=== PATIENT | female | born 1970 | race American Indian/Alaskan Native ===

== ENCOUNTER 2017-10-12 11:14 | Observation (INO) | payer OTHER ==
[2017-10-11 11:23] LABS: Basophils % (Auto) 1.1 % (0.0-1.8); Eosinophils # (Auto) 0.1 K/mm3 (0.0-0.4); Eosinophils % (Auto) 1.7 % (0.0-4.3); Hematocrit 39.7 % (30.3-42.9); Hemoglobin 13.4 gm/dl (10.1-14.3); Lymphocytes # (Auto) 1.7 K/mm3 (1.2-5.4); Lymphocytes % (Auto) 39.9 % (13.4-35.0); Mean Corpuscular HGB Conc 34 % (30-34); Mean Corpuscular Hemoglobin 30 pg (28-32); Mean Corpuscular Volume 89 fl (79-97); Monocytes # (Auto) 0.3 K/mm3 (0.0-0.8); Monocytes % (Auto) 7.4 % (0.0-7.3); Platelet Count 210 K/mm3 (140-440); Red Blood Count 4.44 M/mm3 (3.65-5.03); Red Cell Distribution Width 14.5 % (13.2-15.2)
[2017-10-11 11:45] LABS: BUN/Creatinine Ratio 13; Blood Urea Nitrogen 8 mg/dL (7-17); Calcium 9.2 mg/dL (8.4-10.2)
[2017-10-11 11:46] LABS: Hemolysis Index 8
--- NOTE | 2017-10-12 08:56 | History and Physical Report ---
History of Present Illness Date of examination: 10/12/17 Date of admission: 10/12/2017 Chief complaint: Heavy menses and pelvic pain History of present illness: 47-year-old 030 with a history of symptomatic uterine fibroids. The patient reports significant menorrhagia and dysmenorrhea during her menses. She subsequently become anemic secondary to her heavy menses. The patient underwent an ultrasound that demonstrated findings of an enlarged uterus of 14.5 cm. The ultrasound indicated there were approximately 3 leiomyomas with the largest being 4.6 cm. Patient has elected to undergo definitive surgical management. Past History Past Medical History: other (leiomyoma; Anemia) Past Surgical History: other (reduction mammoplasty; abdominoplasty) Social history: - Obstetrical History : 5 Para: 2 Hx # Term Pregnancies: 2 Number of Pregnancies: 0 Spontaneous Abortions: 1 Induced : 2 Number of Living Children: 2 Medications and Allergies Allergies Allergy/AdvReac Type Severity Reaction Status Date / Time erythromycin base Allergy Severe Verified 10/10/17 15:48 vomiting Home Medications Medication Instructions Recorded Confirmed Last Taken Type Acetaminophen [Tylenol] 650 mg PO Q6HR PRN 10/10/17 10/10/17 Unknown History Review of Systems Constitutional: fatigue Genitourinary: vaginal bleeding, pelvic pain - Vital Signs Vital signs: Vital Signs Temp Pulse Resp BP 98.3 F 64 16 110/78 10/11/17 10:45 10/11/17 10:45 10/11/17 10:45 10/11/17 10:45 Temp Pulse Resp BP Pulse Ox 98.3 F 64 16 110/78 10/11/17 10:45 10/11/17 10:45 10/11/17 10:45 10/11/17 10:45 - Physical Exam Breasts: Positive: deferred Cardiovascular: Regular rate Lungs: Positive: Clear to auscultation Abdomen: Positive: normal appearance Results Result Diagrams: 10/11/17 10:50 10/11/17 10:50 Abnormal lab results 10/11/17 10/11/17 Range/Units 10:50 10:50 WBC 4.3 L (4.5-11.0) K/mm3 Lymph % (Auto) 39.9 H (13.4-35.0) % [place] % (Auto) 7.4 H (0.0-7.3) % Creatinine 0.6 L (0.7-1.2) mg/dL Glucose 128 H (65-100) mg/dL All other labs normal. Assessment and Plan - Patient Problems (1) Leiomyoma Status: Acute Plan to address problem: Patient is scheduled for robotic hysterectomy and bilateral salpingectomy (2) Menorrhagia Status: Acute (3) Dysmenorrhea Status: Acute
[~2017-10-12 11:14] MED LIST: ANCEF/STERILE WATER 2 GM/20 ML 2 GM/20 ML SYRINGE IV SCH
[2017-10-12] MEDS ORDERED: ZOFRAN ONE (12:04)
[2017-10-12] MEDS ORDERED: QUELICIN ONE (12:04)
[2017-10-12] MEDS ORDERED: SUBLIMAZE ONE ×2 (12:05→12:39)
[2017-10-12] MEDS ORDERED: REGLAN ONE (12:05)
[2017-10-12] MEDS ORDERED: XYLOCAINE MPF 2% ONE (12:05)
[2017-10-12] MEDS ORDERED: DIPRIVAN 10 MG/ML IV ONE (12:05)
[2017-10-12] MEDS ORDERED: ZEMURON IV ONE (12:06)
[2017-10-12] MEDS ORDERED: NACL 0.9% 1000 ML 1,000 ML IV SCH ×2 (12:30→17:00)
[2017-10-12] MEDS ORDERED: NACL 0.9% 1000 ML 1,000 ML ONE (12:30)
[2017-10-12] MEDS ORDERED: GELFOAM POWDER 1GM MM ONE ×2 (12:35→15:00)
[2017-10-12] MEDS ORDERED: NEOSPORIN GU IR ONE ×2 (12:36→15:00)
[2017-10-12] MEDS ORDERED: THROMBIN (BOVINE) TP ONE ×2 (12:36→15:00)
[2017-10-12] MEDS ORDERED: MARCAINE-EPI 0.5%-1:200,000 INFILTRATI ONE (12:38)
[2017-10-12] MEDS ORDERED: DECADRON ONE (12:38)
[2017-10-12] MEDS ORDERED: NEURONTIN ONE (12:39)
[2017-10-12] MEDS ORDERED: VERSED ONE (12:40)
[2017-10-12] MEDS ORDERED: ANCEF/STERILE WATER 2 GM/20 ML IV NR (13:00)
[2017-10-12] MEDS ORDERED: LACTATED RINGERS 1,000 ML ONE ×2 (13:27→15:39)
[2017-10-12] MEDS ORDERED: ePHEDrine 50 MG/5 ML-0.9% NACL IV ONE (13:29)
[2017-10-12] MEDS ORDERED: DILAUDID ONE (14:56)
[2017-10-12] MEDS ORDERED: NACL 0.9% IR ONE ×2 (15:00)
[2017-10-12] MEDS ORDERED: ROBINUL ONE (15:21)
[2017-10-12] MEDS ORDERED: BLOXIVERZ ONE (15:21)
[2017-10-12] MEDS ORDERED: NARCAN 0.4 MG/1 ML IV PRN (15:34)
--- NOTE | 2017-10-12 15:34 | Operative Report ---
Operative Report Operative Report: Date of surgery: 10/12/2017 Preoperative diagnoses: Symptomatic uterine fibroids; menorrhagia; dysmenorrhea Postoperative diagnoses: Same as above Procedure: Robotic hysterectomy; bilateral salpingectomy Surgeon: Dora Quintana M.D. Compounding Technician: Mitzi Butler Anesthesia: Gen. endotracheal anesthesia Estimated blood loss: 150 mL Pathology: Multiple leiomyomas, cervix and uterus, bilateral tubes Indication: 47-year-old 030 with a history of symptomatic uterine fibroids. The patient reports a history of significant vaginal bleeding and dysmenorrhea. She elected to undergo definitive surgical management. Procedure: The patient was taken to the operating room and given general endotracheal anesthesia without complication. She is prepped and draped in a normal sterile fashion. A bivalve speculum was placed in the patient's vagina and a single- tooth tenaculum placed on the anterior lip of the cervix. The uterus was sounded with the uterine sound. A OrdrIt uterine manipulator was placed in the bivalve speculum was then removed. Attention was then turned to the patient's abdomen where a millimeter supra umbilical skin incision was then made. A Veress needle was placed and peritoneal entry was verified water-filled syringe. Insufflation of the peritoneal cavity was performed with CO2 gas. The 12 mm trocar was then placed under direct visualization. An additional 8 mm trocar was placed on the patient's left and right lateral side just opposite of the supraumbilical trocar. An additional 5 mm right lateral trocar was then placed as the accessory port. The patient was then placed in steep Trendelenburg. The da Porfirio robot was then engaged. A fenestrated forcep was placed in arm 2 and a vessel sealer was placed in arm 1. The surgeon then transferred to the surgical console. General survey of the abdomen and pelvis revealed a significantly enlarged fibroid uterus. The uterus was noted to be approximately 16 weeks size with multiple leiomyomas. The ovaries and tubes were normal bilaterally. The mesosalpinx was then isolated on the right. The vessel sealer was used to coagulate the mesosalpinx which was then transected. The tube was transected from the ovary. The tubo-ovarian ligament was then coagulated and transected. The round ligament was then coagulated and transected also. The vesicouterine peritoneum was then entered from the patient 's right side. The uterine vessels were then coagulated with the vessel sealer. The vessels were then transected . Attention was then turned to the patient's left side where the tubo-ovarian ligament and mesosalpinx were again isolated coagulated and transected. The vesical peritoneum was then entered from the left and joined in the midline. Peritoneum was reflected off of the lower uterine segment. Uterine vessels were then coagulated and then transected. The blood supply to the uterus was adequately contained. A myomectomy had to be performed in order to decompress the uterus. An incision was made over the uterine serosa with the monopolar scissors. The leiomyoma was then grasped with the single-toothed tenaculum and it was excised with the monopolar scissors. 7 leiomyomas had to be removed. The uterus also had to be bivalved for passage through the vagina. A posterior colpotomy was made. The V care ring was visualized. Posterior colpotomy was created with the monopolar scissors. The incision was continued circumferentially until anterior colpotomy was made. The cervix and uterus were amputated from the vaginal cuff. The uterus was then removed along with the leiomyomas and tubes bilaterally through the vagina and a warm laparotomy sponge was placed and maintain the pneumoperitoneum. The vaginal cuff was then closed in a running fashion with V lock suture. Irrigation of the pelvis was performed. Tisseel was applied to the incision. The supraumbilical 12 mm trocar site was closed with the Artie Emerson device. The skin was then reapproximated with 4-0 Monocryl. The tissue was sent to pathology which included the cervix and uterus. The patient was then successfully extubated. She was then taken to the recovery room in stable condition. All sponge laps and needle counts were correct x2.
[2017-10-12] MEDS ORDERED: PERCOCET 5/325 PO PRN (15:35)
[2017-10-12] MEDS ORDERED: MOTRIN PO PRN (15:35)
[2017-10-12] MEDS ORDERED: TYLENOL PO PRN (15:35)
[2017-10-12] MEDS ORDERED: MILK OF MAGNESIA PO PRN (15:35)
[2017-10-12] MEDS ORDERED: AMBIEN PO PRN (15:35)
[2017-10-12] MEDS ORDERED: MORPHINE PCA 30MG/30ML IV SCH (16:00)
[2017-10-12] MEDS ORDERED: D5LR 1,000 ML IV SCH (16:00)
[2017-10-12] MEDS ORDERED: DEMEROL IV PRN (16:08)
[2017-10-12] MEDS ORDERED: TORADOL IV PRN (16:08)
[2017-10-12] MEDS ORDERED: ZOFRAN IV PRN (16:08)
--- NOTE | 2017-10-12 16:08 | Anesthesia Day of Surgery ---
Anesthesia Day of Surgery - Day of Surgery Patient Examined: Yes Patient H&P Reviewed: Yes Patient is NPO: Yes
--- NOTE | 2017-10-12 16:08 | Anesthesia Consultation ---
Anesthesia Consult and Med Hx Date of service: 10/12/17 - Airway Anesthetic Teeth Evaluation: Good ROM Head & Neck: Adequate Mental/Hyoid Distance: Adequate Mallampati Class: Class II Intubation Access Assessment: Probably Good - Pulmonary Exam CTA: Yes - Cardiac Exam Cardiac Exam: RRR - Pre-Operative Health Status ASA Pre-Surgery Classification: ASA2 Proposed Anesthetic Plan: General - Pulmonary Hx Asthma: Yes (Has not been treated in over a year) - Central Nervous System Hx Psychiatric Problems: No - Other Systems Hx Alcohol Use: Yes (occas) Hx Cancer: No
--- NOTE | 2017-10-12 16:12 | Post Anesthesia Evaluation ---
- Post Anesthesia Evaluation Patient Participated: Yes Airway Patent: Yes Stable Respiratory Function: Yes Nausea/Vomiting: No Temp > 96.8F: Yes Pain Manageable: Yes Adequeate Hydration: Yes Anesthesia Complications: No
[2017-10-12] MEDS: DILAUDID IV PRN ×2 (16:33→16:45)
[2017-10-12] MEDS ORDERED: LACTATED RINGERS 1,000 ML IV SCH (17:00)
[2017-10-12] MEDS: TORADOL IV SCH (22:26)
[2017-10-13] MEDS: ZOFRAN IV PRN ×2 (00:29→13:00)
[2017-10-13] MEDS: TORADOL IV SCH ×2 (04:19→10:50)
[2017-10-13 04:20] LABS: Hematocrit 35.7 % (30.3-42.9)
--- NOTE | 2017-10-13 10:34 | Progress Note ---
Assessment and Plan - Patient Problems (1) Leiomyoma Current Visit: No Status: Acute Plan to address problem: patient doing well discharge home today once patient voids (2) Menorrhagia Current Visit: No Status: Acute (3) Dysmenorrhea Current Visit: No Status: Acute Subjective - Subjective Date of service: 10/13/17 Interval history: Surgical findings discussed with patient. She has had a shrestha removed but has not voided yet. Tolerating regular diet. Patient reports: appetite normal, pain well controlled Objective - Vital Signs Latest vital signs: Vital Signs Temp Pulse Resp BP BP Pulse Ox 10/13/17 05:53 20 10/13/17 04:30 98.7 F 74 18 118/68 10/13/17 04:19 18 10/13/17 01:00 98.7 F 71 16 104/44 10/13/17 00:12 16 10/12/17 22:29 18 10/12/17 22:26 18 10/12/17 20:05 18 10/12/17 19:00 98.7 F 74 18 119/58 10/12/17 18:00 97.4 F L 69 20 105/54 96 10/12/17 17:45 64 14 108/58 100 10/12/17 17:00 60 14 105/50 100 10/12/17 16:45 97.4 F L 66 18 110/64 100 10/12/17 16:30 68 16 114/67 100 10/12/17 16:15 65 16 114/67 100 10/12/17 16:12 16 10/12/17 16:05 73 11 L 116/65 100 10/12/17 16:00 71 16 116/63 100 10/12/17 15:55 77 16 116/65 100 10/12/17 15:50 96.8 F L 83 18 116/62 100 10/12/17 13:10 69 14 110/63 100 10/12/17 13:05 69 14 118/63 100 10/12/17 13:00 71 14 110/68 100 10/12/17 12:55 63 14 106/67 100 10/12/17 12:50 63 14 111/56 100 10/12/17 12:46 64 14 116/62 100 10/12/17 12:41 59 L 13 107/65 100 10/12/17 12:20 97.9 F 68 16 137/74 99 10/12/17 11:30 97.9 F 68 16 137/74 99 Intake and Output 10/12/17 10/13/17 10/13/17 22:59 06:59 14:59 Intake Total 700 Output Total 800 2300 Balance -100 -2300 Intake: IV 700 Output: Urine 800 2300 Indwelling Catheter 300 2300 Other: Total, Output Amount 300 900 Voiding Method Indwelling Catheter - Exam Abdomen: Present: normal appearance, soft Incision: Present: normal - Labs Labs: Abnormal lab results 10/12/17 Range/Units 16:02 POC Glucose 174 H (70-105)
--- NOTE | 2017-10-13 10:36 | Discharge Summary ---
Providers - Providers Date of Admission: 10/12/17 15:35 Date of discharge: 10/13/17 Attending physician: ESTELA ALVAREZ Primary care physician: SALLY REYEZ Hospitalization Reason for admission: other (symptomatic uterine fibroids) Procedure: other (robotic hysterectomy and bilateral salpingectomy) Incision: normal Discharge diagnosis: other (symptomatic uterine fibroids) Hospital course: Patient was admitted the day of surgery and underwent a robotic hysterectomy. See op note. Postoperative course uneventful Condition at discharge: Good Disposition: DC-01 TO HOME OR SELFCARE - Discharge Diagnoses (1) Leiomyoma Status: Acute (2) Menorrhagia Status: Acute (3) Dysmenorrhea Status: Acute Plan - Discharge Medications Prescriptions: Docusate Sodium [Colace] 100 mg PO BID PRN #60 capsule PRN Reason: Constipation Ibuprofen [Motrin] 800 mg PO Q8HR PRN #60 tablet PRN Reason: Pain Oxycodone HCl/Acetaminophen [Percocet 7.5/325 mg] 1 each PO Q6HR PRN #45 tablet PRN Reason: Pain - Provider Discharge Summary Activity: no sex for 6 weeks, no heavy lifting 4 weeks, no strenuous exercise Diet: routine Instructions: routine Additional instructions: [] Smoking cessation referral if applicable(refer to patient education folder for contact #) [] Refer to [facility] Booklet Call your doctor immediately for: * Fever > 100.5 * Heavy vaginal bleeding ( >1 pad per hour) * Severe persistent headache * Shortness of breath * Reddened, hot, painful area to leg or breast * Drainage or odor from incision. * Keep incision clean and dry at all times and follow doctor's instructions regarding bathing/showering schedule followup with Dr. Shah in 4 weeks - Follow up plan
[2017-10-13 21:44] VITALS: BP 129/64
== END 2017-10-13 21:40 | disposition home or self-care (01) ==
LOC: OR 11:14 → OB 15:35
PROVIDERS: ADMIT Obstetrics & Gynecology; ATTEND Obstetrics & Gynecology
DX: D21.9 Benign neoplasm of connective and other soft tissue, unspecified (principal); N92.0 Excessive and frequent menstruation with regular cycle
CPT/HCPCS: 36415; 58554; 64450; 80048; 82962; 84703; 85014; 85018; 85025; 86850; 86900; 86901; 88307; 96374; 96375; 96376; A4217; A4649; G0378; J0330; J0690; J1100; J1170; J1885; J2250; J2270; J2405; J2704; J2710; J2765; J3010; J7030; J7120; J7121; S2900